=== PATIENT | male | born 1945 | race Caucasian/White ===

== ENCOUNTER 2021-07-22 11:00 | Outpatient (CLI) | payer MEDICARE, SELFPAY ==
--- NOTE | 2021-07-22 11:12 | XR_ITS ---
WS: [id number] Thoracic spine, 3 views, 07/22/2021 Clinical Data: THORACIC BACK PAIN/LUMBAR BACK PAIN Comparison: None. Findings: No compression fractures are seen. The disc heights are normal. Minimal osteoarthritic spurring of th e thoracic vertebral bodies is seen There is mediastinal widening at the level of the aortic arch and recommend PA and lateral chest x-ra y. XR/XR thoracic spine 3V* [id number] Impression: 1. 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 2. 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
--- NOTE | 2021-07-22 11:12 | XR_ITS ---
WS: [id number] Lumbar spine, 3 views, 07/22/2021 Clinical Data: THORACIC BACK PAIN/LUMBAR BACK PAIN Comparison: None. Findings: No compression fractures or subluxation is seen. No disc space narrowing is seen. The transverse proc esses and SI joints are normal. There is an anterior superior spur at L2 and L4. There are clips in the left upper quadrant from surg pauly. There is calcification of the wall of the abdominal aorta but no aneurysm. There are radiopaque seeds in the region of the prostate. 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
== END 2021-07-22 11:01 | disposition home or self-care (01) ==
PROVIDERS: PCP Nurse Practitioner Family; Visit Provider Nurse Practitioner Family
DX: M54.6 Pain in thoracic spine (principal); M54.5 Low back pain
CPT/HCPCS: 72072; 72100